=== PATIENT | female | born 1985 | race Caucasian/White ===

== ENCOUNTER 2016-07-22 21:31 | Emergency (ER) | payer OTHER ==
--- NOTE | 2016-07-22 23:43 | ED ---
- HPI Summary HPI Summary: Patient is 11 week arrives to ED with CC vaginal bleeding x 5 hours. Bleeding began initially last evening but was considered "spotting." She noted to some cramping today and expulsion of tissue and blood clots which have been constant since 5 hours prior to arrival in ED. Cramping is 5/10 and intermittent. She has not taken anything for the discomfort. Patient had not had OBGYN established yet d/t new onset of . First appt was next week. Denies fever or other illness. Denies urinary symptoms. On arrival, patient was soaking through 1 pad per hour and this continues. She states since onset, the cramping has improved and the bleeding has improved only slightly. - History of Current Complaint Chief Complaint: EDVaginalBleeding Stated Complaint: 11 WKS PREG-MISCARRIAGE Time Seen by Provider: 07/22/16 21:50 Hx Obtained From: Patient Chief Complaint: Concern for Embryonic Dem, Vaginal Bleeding Onset/Duration: Started Hours Ago Timing: Intermittent Severity: Moderate Current Severity: Moderate Pain Intensity: 5 Location of Pain: Flank, Suprapubic Character: Colicy, Cramping Associated Signs and Symptoms: Positive: Back Pain, Vaginal Bleeding or Discharge - Assessment Hx Now: Yes History of Ectopic : No Hx Pelvic Inflammatory Disease: No Vaginal Bleeding Amount: Copious Contraction Intensity: Moderate Contraction Pattern: Irregular Hx Hysterectomy: No History of STI/STD: No - Risk Factors Ectopic Risk Factor: Maternal Age ^ 30 Ovarian Torsion Risk Factor: Reproductive Age PMH/Surg Hx/FS Hx/Imm Hx Previously Healthy: Yes - Immunization History Date of Tetanus Vaccine: unk Date of Influenza Vaccine: unk Infectious Disease History: No Infectious Disease History: Denies: Traveled Outside the [place] in Last 30 Days - Social History Occupation: Employed Full-time Lives: With Family Alcohol Use: None Hx Substance Use: No Substance Use Type: Reports: None Hx Tobacco Use: No Smoking Status (MU): Never Smoked Tobacco Have You Chewed or Dipped Tobacco in the LAST YEAR: No Review of Systems Constitutional: Negative Eyes: Negative Cardiovascular: Negative Respiratory: Negative Positive: Abdominal Pain Positive: see HPI, other - vaginal bleeding Positive: Myalgia - cramping/back pain - contraction pain Neurological: Negative Psychological: Normal All Other Systems Reviewed And Are Negative: Yes Physical Exam - Physical Exam Triage Information Reviewed: Yes Vital Signs Reviewed: Yes Appearance: Positive: Well-Nourished, Pain Distress Skin: Positive: Warm, Skin Color Reflects Adequate Perfusion Eyes: Positive: Normal, EOMI Neck: Positive: Supple, No Lymphadenopathy Respiratory/Lung Sounds: Positive: Clear to Auscultation, Breath Sounds Present Cardiovascular: Positive: Normal, RRR Abdomen Description: Positive: Soft, Other: - tender to palpation in all 4 quadrants Bowel Sounds: Positive: Present Musculoskeletal: Positive: Normal, Strength/ROM Intact Neurological: Positive: Normal, Sensory/Motor Intact Psychiatric: Positive: Normal AVPU Assessment: Alert Diagnostics - Vital Signs Vital Signs Temp Pulse Resp BP Pulse Ox 07/22/16 21:36 98.8 F 105 18 114/72 98 - Laboratory Lab Statement: Any lab studies that have been ordered have been reviewed, and results considered in the medical decision making process. Course/Dx - Course Course Of Treatment: Dr. Fuchs consulted on patients arrival. Patient with tissue and blood passage x 5 hours. Patient states contractions and bleeding slightly improved since arrival to ED. Afebrile. Pain now 4/10 and contraction pain is intermittent. Patient is known 11 weeks by prior US and HCG. Transvaginal US completed. Patient to follow up with OB on Monday. Note given for 2 days from work. Patient agrees with plan and will rest for the weekend. Patient understands bleeding may occur for several days to week and return precautions given. On discharge, patient is no longer cramping and states 0/10 pain. Bleeding has significantly decreased and pelvic examination was deferred at this time per patients wishes. - Differential Diagnosis/HQI/PQRI: Incomplete , Missed , Spontaneous , Threatened , /Embryonic Demise - Diagnoses Provider Diagnoses: Incomplete Discharge - Discharge Plan Condition: Stable Disposition: HOME Patient Education Materials: Miscarriage (ED) Forms: *Work Release Referrals: No Primary Care Phys,NOPCP [Primary Care Provider] - Additional Instructions: Take Tylenol 650mg three times daily for any discomfort. Please follow up with OBGYN on Monday. If you develop fever or worsening pain or vaginal bleeding, please come back to ED.
[2016-07-23 00:28] VITALS: BP 103/57
--- NOTE | 2016-07-23 08:12 | RAD ---
Indication: 11 weeks 0 days gestation based on May 06, 2016. Possible miscarriage; past large amount of tissue at 8:00 PM tonight. Comparison: None. Technique: Transvaginal pelvic ultrasound. obstetrical ultrasound. Report: 9.1 x 5.5 x 5.8 cm retroverted uterus. Heterogeneous echogenicity 12 mm endometrium without intrinsic vascularity on Doppler. No intrauterine gestational sac visualized. 2.9 x 1.8 x 1.6 cm RIGHT ovary with documented vascular flow is remarkable for multiple small follicles only. 3.9 x 3.4 x 2.9 cm LEFT ovary with documented vascular flow is remarkable for a unilocular 2.1 x 2.4 x 2.1 cm cyst without complex features which may represent a follicular cyst or corpus luteum. No visualized extra ovarian adnexal region lesions. Physiologic small volume of free pelvic fluid. IMPRESSION: No IUP or suspicious adnexal lesion evident. In absence of a documented IUP ectopic is not entirely excluded. Close clinical, beta-HCG, and sonographic follow-up suggested. Follicular cyst or corpus luteum at the LEFT ovary measuring up to 2.4 cm.
== END 2016-07-23 00:27 | disposition home or self-care (01) ==
LOC: ED 21:31 → MERGE 21:31 → ED 07-23 00:27
DX: O03.4 Incomplete spontaneous abortion without complication (principal); M54.9 Dorsalgia, unspecified; N93.9 Abnormal uterine and vaginal bleeding, unspecified
CPT/HCPCS: 76817; 99283

== ENCOUNTER 2016-12-28 07:54 | Emergency (ER) | payer BC, OTHER ==
[2016-12-28] MEDS ORDERED: NS 0.9% 1000 ML* 1,000 ML IV ONE (08:05)
[2016-12-28] MEDS ORDERED: Ketorolac INJ* 30 MG/ML 1 ML VIAL IV PUSH ONE (08:19)
[2016-12-28 08:52] LABS: Hematocrit 40 % (35-47); Hemoglobin 13.5 g/dl (12.0-16.0); Mean Corpuscular HGB Conc 34 g/dl (31-36); Mean Corpuscular Hemoglobin 32 pg (27-31); Mean Corpuscular Volume 95 fL (80-97); Mean Platelet Volume 9 um3 (7.4-10.4); Red Blood Count 4.22 10^6/ul (4.0-5.4); Red Cell Distribution Width 12 % (10.5-15); White Blood Count 12.5 10^3/ul (3.5-10.8)
[2016-12-28 09:09] LABS: ALT 8 U/L (7-52); AST 14 U/L (13-39); Albumin 4.1 g/dL (3.2-5.2); Alkaline Phosphatase 57 U/L (34-104); Anion Gap 5 mmol/L (2-11); BUN/Creatinine Ratio 16.9 (8-20); Blood Urea Nitrogen 10 mg/dL (6-24); C Reactive Protein 14.76 mg/L (< 5.00); CO2 Carbon Dioxide 27 mmol/L (22-32); Calcium 9.3 mg/dL (8.6-10.3); Chloride 99 mmol/L (101-111); EGFR Non-African American 117.4 (>60); Globulin 2.7 g/dL (2-4); Glucose 107 mg/dL (70-100); Lipase < 10 U/L (11.0-82.0); Potassium 3.8 mmol/L (3.5-5.0); Sodium 131 mmol/L (133-145); Total Protein 6.8 g/dL (6.4-8.9)
[2016-12-28 09:56] LABS: Urine Bacteria 1+ (Absent); Urine Bilirubin Negative (Negative); Urine Glucose Negative (Negative); Urine Nitrite Negative (Negative)
--- NOTE | 2016-12-28 09:59 | RAD ---
CLINICAL HISTORY: Right flank pain COMPARISON: None relevant TECHNIQUE: Multiple contiguous axial CT scans were obtained of the abdomen and pelvis, without intravenous contrast enhancement. Coronal and sagittal multiplanar reformations are submitted for review. Oral contrast was not administered. FINDINGS: The study is limited by the lack of intravenous contrast. This limits evaluation of the solid organs and vasculature. LUNG BASES: The lung bases are clear. LIVER: The liver is normal in shape, size, contour, and attenuation. BILE DUCTS: There is no intrahepatic or extrahepatic biliary dilatation. GALLBLADDER: The gallbladder is normal, without pericholecystic inflammatory change. PANCREAS: The pancreas is normal, without mass or ductal dilatation. SPLEEN: Normal in size and appearance. UPPER GI TRACT: Evaluation of the gastrointestinal tract is limited by incomplete gastric distention. The upper GI tract is unremarkable. SMALL BOWEL AND MESENTERY: The small bowel is normal in contour, course, and caliber. There is no obstruction or dilatation. COLON: The colon is normal in contour, course, caliber. There is no pericolonic inflammatory change. ADRENALS: Normal bilaterally. KIDNEYS: There are punctate bilateral renal calyceal stones, measuring up to 0.2 cm. There is no appreciable hydronephrosis. BLADDER: The bladder is incompletely distended but is grossly normal. PELVIC ORGANS: There is a 2.2 cm left ovarian cyst. There is a small amount of free fluid within the pelvic cul-de-sac. This may BE physiologic within a reproductive age female. AORTA: The aorta is normal. IVC: Unremarkable LYMPH NODES: There is no lymphadenopathy by size criteria. ABDOMINAL WALL: There is no evidence for abdominal wall hernia. BONES AND SOFT TISSUES: The bones and soft tissues are unremarkable. OTHER: None IMPRESSION: 1. BILATERAL NONOBSTRUCTING RENAL CALYCEAL STONES. 2. LEFT OVARIAN CYST
--- NOTE | 2016-12-28 11:17 | RAD ---
HISTORY: Right lower abdominal pain COMPARISONS: CT dated December 28, 2016, TECHNIQUE: Multiple transverse and longitudinal ultrasound images were obtained of the pelvis using grayscale, color Doppler, and spectral Doppler imaging using the endovaginal transducer. FINDINGS: UTERUS: The uterus measures 8 x 4.1 x 5.1 cm. There is a myometrial fibroid in the lower uterine segment to the right of midline measuring 1.1 x 0.6 x 1 cm in size. ENDOMETRIUM: The endometrial stripe is smooth. The endometrium measures 1.3 cm in thickness. CUL-DE-SAC: There is no free fluid within the cul-de-sac. RIGHT OVARY: The right ovary measures 4 x 1.6 x 1.6 cm. Normal arterial and venous waveforms are identifiable within the ovary on spectral Doppler imaging. Several follicles are noted. LEFT OVARY: The left ovary measures 3.6 x 2.8 x 3.1 cm. Normal arterial and venous waveforms are identifiable within the ovary on spectral Doppler imaging. There is a 2.3 cm simple left ovary cyst. BLADDER: The bladder is not well visualized. OTHER: None IMPRESSION: 1. SMALL UTERINE FIBROID. 2. 2.3 CENTIMETER SIMPLE LEFT OVARIAN CYST. 3. NO SONOGRAPHIC FEATURES OF TORSION. PLEASE NOTE THAT PARTIAL OR INTERMITTENT TORSION MAY BE SONOGRAPHICALLY NORMAL.
[2016-12-28] MEDS ORDERED: Sulfamethox/Trimethoprim DS 800/160* TAB PO ONE (11:39)
[2016-12-28 12:14] VITALS: BP 97/71
--- NOTE | 2016-12-30 09:27 | PN ---
Progress Note - Progress Note Date of Service: 12/28/16 Note: diagnosed with pyelonephritis. sent home on bactrim. urine preliminary results grew >100,00 of e. coli. will wait for final culture results. no changes needed at this time.
--- NOTE | 2017-01-02 09:12 | PN ---
Progress Note - Progress Note Date of Service: 12/28/16 Note: Urine culture grew ESBL E. Coli Patient placed on Bactrim prior to discharge Bactrim is sensitive to organism. Nothing further at this time. Kati Sheets PA-C
== END 2016-12-28 12:44 | disposition home or self-care (01) ==
LOC: ED 07:54
DX: N83.202 Unspecified ovarian cyst, left side (principal); N12 Tubulo-interstitial nephritis, not specified as acute or chronic; R10.84 Generalized abdominal pain
CPT/HCPCS: 36415; 74176; 76830; 80053; 81003; 81015; 83605; 83690; 84702; 85025; 86140; 87077; 87086; 87186; 96374; 99282; A9270-GY; J1885

== ENCOUNTER 2018-09-01 16:00 | Emergency (ER) | payer BC ==
--- OUTSIDE RECORDS SUMMARY | 2018-09-01 16:06 | XMS REPORT | Continuity of Care Document ---
:1985 External Reference #:[id number] Author Name Freya Warner CNM Address [address] [place] [address] Care Team Providers Name Role Phone SANTY [place] Care Team Information Property Technician Unavailable Payers Date Identification Numbers Payment Provider Subscriber Policy Number: [id number] Antonio BC/[facility] Geno Herrera PayID: [id number] [address] [address] [place] [address] Advance Directives Description No Information Available Problems Date Description Provider Status Onset: 07/26/2016 Miscarriage Aylin Petit NP Resolved Resolved: 08/09/2016 Family History Date Family Member(s) Observation Comments Father A&W Mother A&W First Brother A&W half brother Second Brother A&W half brother First Sister A&W Paternal Grandfather due to Stroke () Paternal Grandfather due to Old Age () Paternal Grandmother due to Old Age () Maternal Grandfather due to Old Age () Maternal Grandmother due to Old Age () Social History Type Date Description Comments Sex Unknown Education Highest level completed, Bachelor's Degree Marital Status Single Lives With Son Lives With Pets 1 cat Occupation [employer] Cigarette Use Does Not Smoke Cigarettes ETOH Use Denies alcohol use Recreational Drug Use Does Not Use Drugs Tobacco Use Start: Unknown Patient has never smoked Currently Active Patient is currently sexually active Contraceptive Methods Past methods include condoms STD's No STD History Allergies, Adverse Reactions, Alerts Description No Known Drug Allergies Medications Medication Date Status Form Strength Qnty SIG Indications Ordering Provider B12 Folate Active Capsules 800-800mcg Unknown 0 B6 Natural Active Tablets 100mg Unknown 0 No Active Hx Aylin Medications 7 - Marisabel, SERVICE CONSULTANT 8 Medications Administered in Office Medication Date Status Form Strength Qnty SIG Indications Ordering Provider PT YVETTE Tbco Administered Injection Erianna Id as Non User 019 GAURAV Warner Immunizations Description No Information Available Vital Signs Date Vital Result Comment 08/08/2018 8:37am BP Systolic 98 mmHg BP Diastolic 60 mmHg Height 62 inches 5'2" Weight 132.00 lb BMI (Body Mass Index) 24.1 kg/m2 Last Menstrual Period 8562668 2 Parity 1 01/08/2018 11:13am BP Systolic 102 mmHg BP Diastolic 64 mmHg Height 62 inches 5'2" Weight 134.00 lb BMI (Body Mass Index) 24.5 kg/m2 Last Menstrual Period 6909574 2 Parity 1 08/09/2016 8:37am BP Systolic 110 mmHg BP Diastolic 64 mmHg Height 62 inches 5'2" Weight 142.00 lb BMI (Body Mass Index) 26.0 kg/m2 Last Menstrual Period 7432978 2 Parity 1 07/26/2016 9:13am BP Systolic 108 mmHg BP Diastolic 60 mmHg Height 62 inches 5'2" Weight 141.00 lb BMI (Body Mass Index) 25.8 kg/m2 Last Menstrual Period 9707341 2 Parity 1 Results Test Date Facility Test Result H/L Range Note CBC With No 01/18/2018 [facility] White Blood 5.5 10^3/uL N 3.5-10.8 [place] [address] Count [phone] Red Blood Count 4.06 10^6/uL N 4.00-5.40 Hemoglobin 12.8 g/dL N 12.0-16.0 Hematocrit 38 % N 35-47 Mean Corpuscular Volume 93 fL N 80-97 Mean Corpuscular Hemoglobin 32 pg High 27-31 Mean Corpuscular HGB Conc 34 g/dL N 31-36 Red Cell Distribution Width 13 % N 10.5-15 Platelet Count 234 10^3/uL N 150-450 Mean Platelet Volume 9.2 um3 N 7.4-10.4 Laboratory test finding 01/18/2018 [facility] Estradiol 49 pg/ mL 1 [place] [address] [phone] FSH 7.8 mIU/mL 2 Lutenizing Hormone 11.2 mcIU/mL 3 Prolactin 12.9 ng/mL N 1.0-25.0 4 TSH 2.96 mcIU/mL N 0.34-5.60 5 T4 Free 1.12 ng/dL N 0.61-1.12 6 Laboratory test 01/08/2018 [facility] Cytology SEE RESULT BELOW 7 [place] [address] [phone] Laboratory test 08/09/2016 [facility] Cytology SEE RESULT BELOW 8 [place] [address] [phone] Human Papilloma Virus Rna POSITIVE Abnormal Negative 9 Laboratory test 08/09/2016 [facility] HCG 18.35 mIU/ mL N 10 [place] [address] [phone] Laboratory test 07/26/2016 [facility] HCG 906.16 mIU/ mL N 11 [place] [address] [phone] Laboratory test 07/22/2016 [facility] HCG 49587.00 N 12 [place] [address] mIU/mL [phone] Type And Screen 07/22/2016 [facility] Patient [place] [address] Type [phone] Antibody Screen NEGATIVE N 1 Estradiols <40 pg/mL are sent to a reference lab for low range testing. Postmenopausal Females < 20 Ovulating females: by day in cycle relative to LH Peak Follicular phase - 12 10-50 - 4 60-200 Mid-cycle - 1 120-375 Luteal phase + 2 50-155 + 6 60-260 + 12 15-115 2 Normally menstruating females - Follicular phase 3 - 9 - Mid-cycle peak 4 - 23 - Luteal phase 1 - 6 Postmenopausal females 16 - 114 3 Normally menstruating females - Follicular Phase 1 - 18 - Mid-Cycle Peak 24 - 105 - Luteal Phase 0.6 - 20 Postmenopausal females 15 - 62 4 [id number] 5 [id number] 6 [id number] 7 SEE RESULT BELOW Name: GENO FLETCHER : [address]: Freya Warner [facility] Acct: [id number] Unit: [id number] AGE: 32 Location: [facility] Re01/08/18 SEX: F Status: REG REF SPEC: [id number] KAUR: 01/08/18-[address]: Freya Warner [facility] REQ: [id number] RECD: 01/08/18 STATUS: SOUT _ ORDERED: TP IMAGE ANALYS, HPV/Thin Prep COMMENTS: [id number] Negative for Intraepithelial lesion or Malignancy Date Time Test Result Flag (u) Normal Range 01/08/18 1412 @ HPV RNA Negative Negative @ @ The high-risk HPV types detected by the assay include: 16, @ 18, 31, 33, 35, 39, 45, 51, 52, 56, 58, 59, 66, and 68. A. Ectocervical/Endocervical Specimen Adequacy: Satisfactory of evaluation Transformation zone component identified Patient Information: HPV: High risk HPV RNA testing regardless of pap results. Actual Specimen Date: 01/08/18 Last Menstrual Date: 12/18/17 Date of Last Specimen: 08/09/16 ?: N Post Menopausal?: N Hysterectomy?: N Previous Abnormal Pap Smears?:N Signed by and Reported on: NISSA Winkler (ASCP) 1416 This Pap test was evaluated with the assistance of the AniwaysPrep Test Imaging System. Due to cytologic findings at the painter aircraft microscope, comprehensive manual rescreening by a Instructor Programmable Controllers may be required. The Pap Smear is a screening test designed to aid in the detection of premalignant and malignant conditions of the uterine cervix. It is not a diagnostic procedure and should not be used as the sole means of detecting cervical cancer. Both false- positive and false- negative reports do occur. Depending on your risk status, a Pap smear should be obtained and evaluated every 1-3 years. END OF REPORT DEPARTMENT OF PATHOLOGY, [address] [place] [address] Toño Yost M.D. Director [facility] # [id number] 8 SEE RESULT BELOW Name: GENO FLETCHER : [address]: Aylin Petit NP Acct: [id number] Unit: [id number] AGE: 31 Location: [facility] Re08/09/16 SEX: F Status: REG REF SPEC: [id number] KAUR: 08/09/[address]: Aylin Petit NP REQ: [id number] RECD: 08/09/16-1305 STATUS: SOUT _ ORDERED: IMAGE ANALYSIS, HPV/Thin Prep COMMENTS: [id number] FINAL DIAGNOSIS Negative for Intraepithelial lesion or Malignancy A. Ectocervical/Endocervical Specimen Adequacy: Satisfactory of evaluation Transformation zone component identified Patient Information: HPV: High risk HPV RNA testing regardless of pap results. Actual Specimen Date: 08/09/16 Last Menstrual Date: 05/06/16 Spec Date if unknown: unknown ?: N Post Menopausal?: N Hysterectomy?: N Previous Abnormal Pap Smears?:N Date Time Test Result Flag (u) Normal Range 08/09/16 0923 HPV RNA POSITIVE H Negative The high-risk HPV types detected by the assay include: 16, 18, 31, 33, 35, 39, 45, 51, 52, 56, 58, 59, 66, and 68. Signed (signature on file) Radu MercerNISSA(ASCP) 08/11 1355 This Pap test was evaluated with the assistance of the AniwaysPrep Test Imaging System. Due to cytologic findings at the painter aircraft microscope, comprehensive manual rescreening by a Instructor Programmable Controllers may be required. The Pap Smear is a screening test designed to aid in the detection of premalignant and malignant conditions of the uterine cervix. It is not a diagnostic procedure and should not be used as the sole means of detecting cervical cancer. Both false- positive and false- negative reports do occur. Depending on your risk status, a Pap smear should be obtained and evaluated every 1-3 years. END OF REPORT * ML=Testing performed at Main Lab DEPARTMENT OF PATHOLOGY, [address] [place] [address] Toño Yost M.D. Director [facility] # [id number] RUN DATE: 08/11/16 [facility] LAB LIVE PAGE 1 Patient: GENO FLETCHER [id number] (Continued) 9 The high-risk HPV types detected by the assay include: 16, 18, 31, 33, 35, 39, 45, 51, 52, 56, 58, 59, 66, and 68. 10 <5.0 Negative 5.0 - 25.0 Indeterminate (Repeat testing recommended after 72 hours) >25.0 Positive Perimenopausal women can display HCG levels of up to 20 mIU/mL 11 <5.0 Negative 5.0 - 25.0 Indeterminate (Repeat testing recommended after 72 hours) >25.0 Positive Perimenopausal women can display HCG levels of up to 20 mIU/mL 12 <5.0 Negative 5.0 - 25.0 Indeterminate (Repeat testing recommended after 72 hours) >25.0 Positive Perimenopausal women can display HCG levels of up to 20 mIU/mL Procedures Date Code Description Status 07/26/2016 62186 Echography Transvaginal Completed Encounters Type Date Location Provider Dx Diagnosis Office Visit 08/08/2018 [facility] Freya Warner, N97.9 Female infertility, 9:00a CNM unspecified Office Visit 01/08/2018 [facility] Freya Warner Z01.419 Encntr for aerial lineman exam 11:20a CNM (general) (routine) w/o abn findings Office Visit 08/09/2016 [facility] Aylin Petit NP Z01.419 Encntr for aerial lineman exam 9:00a (general) (routine) w/o abn findings Office Visit 07/26/2016 [facility] Aylin Petit NP O02.1 Missed 9:30a Plan of Treatment Future Appointment(s):09/07/2018 9:00 am - Charity Bull CNM at [facility] 8:30 am - Ultrasounds at [facility]08/08/2018 - [place]97.9 Female infertility, unspecifiedComments:Return for sono with review before next ovulation to check lining/follicles. We will plan progesterone testing approx 1 week after ovulation. Can consider progesterone in upcoming cycles if indicated. Patient to call to schedule HSG and confirm timing for sono with next period. As discussed, considering scheduling consult with Kenneth/ [facility] because may take some time to get on their schedule and can cancel if not needed.
--- NOTE | 2018-09-01 17:39 | UC ---
Complaint Female HPI - HPI Summary HPI Summary: 2 DAYS OF WORSENING LEFT FLANK PAIN AND LEFT LOWER ABDOMINAL PAIN. NO DYSURIA, FREQUENCY OR URGENCY BUT DOES C/O SENSATION OF INCOMPLETE VOIDING. IS CURRENTLY ON MENSES. HAS A KNOWN H/O OF SMALL LEFT SIDED KIDNEY STONES. HAS ALSO HAD MILD INTERMITTENT NAUSEA AND OVERALL MALAISE. - History Of Current Complaint Chief Complaint: UCGU Stated Complaint: KIDENY/BACK PAIN Time Seen by Provider: 09/01/18 16:07 Hx Obtained From: Patient Hx Last Menstrual Period: on it Onset/Duration: Gradual Onset, Lasting Days, Still Present Timing: Constant Severity Initially: Moderate Severity Currently: Moderate Pain Intensity: 8 Pain Scale Used: 0-10 Numeric Character: Sharp Aggravating Factor(s): Nothing Associated Signs And Symptoms: Positive: Back Pain, Nausea. Negative: Fever - Allergies/Home Medications Allergies/Adverse Reactions: Allergies Allergy/AdvReac Type Severity Reaction Status Date / Time fish derived Allergy Hives Verified 09/01/18 16:31 PMH/Surg Hx/FS Hx/Imm Hx GI/ History: Kidney Stones - Surgical History Surgical History: Yes Surgery Procedure, Year, and Place: 2010 - Family History Known Family History: Positive: Non-Contributory - Social History Alcohol Use: None Substance Use Type: None Smoking Status (MU): Never Smoked Tobacco Review of Systems All Other Systems Reviewed And Are Negative: Yes Constitutional: Positive: Negative Respiratory: Positive: Negative Cardiovascular: Positive: Negative Gastrointestinal: Positive: Nausea Genitourinary: Positive: Other - SENSATION OF INCOMPLETE VOIDING. Negative: Dysuria, Hematuria, Frequency, Urgency Physical Exam Triage Information Reviewed: Yes Appearance: Well-Appearing, No Pain Distress, Well-Nourished Vital Signs: Initial Vital Signs Temp 99.1 F 09/01/18 16:09 Pulse 93 09/01/18 16:09 Resp 16 09/01/18 16:09 BP 120/80 09/01/18 16:09 Pulse Ox 100 09/01/18 16:09 Laboratory Tests 09/01/18 09/01/18 16:24 16:27 POC Urine Color Yellow POC Urine Clarity Turbid POC Urine pH 7.0 POC Ur Specif [place] 1.020 POC Urine Protein 3+ A POC Ur Glucose (UA) Negative POC Urine Ketones Negative POC Urine Blood 3+ A POC Urine Nitrite Negative POC Urine Bilirubin Negative POC Urine Urobilinogen 0.2 POC U Leukocyte Esteras 2+ A POC Ur Test Negative Eyes: Positive: Conjunctiva Clear ENT: Positive: Hearing grossly normal Neck: Positive: Supple Respiratory: Positive: No respiratory distress, No accessory muscle use Cardiovascular: Positive: Pulses Normal Abdomen Description: Positive: Soft, CVA Tenderness (L), Other: - TENDER LUQ. NO REBOUND OR RIGIDITY. Negative: CVA Tenderness (R), Distended, Guarding Musculoskeletal: Positive: No Edema Neurological: Positive: Alert Psychological: Positive: Age Appropriate Behavior Skin: Negative: Rashes Diagnostics - Radiology CT ABD/PELVIS W/O CONTRAST Radiology Interpretation Completed By: Radiologist Summary of Radiographic Findings: No evidence of obstructive uropathy is noted. No hernias are identified. There. are tiny calculi in both kidneys which are nonobstructive. Gallbladder is partially. contracted. Complaint Female Dx - Differential Dx/Diagnosis Provider Diagnosis: Pyelonephritis Discharge - Sign-Out/Discharge Documenting (check all that apply): Patient Departure All imaging exams completed and their final reports reviewed: Yes - Discharge Plan Condition: Stable Disposition: HOME Prescriptions: Sulfamethox/Trimethoprim DS* [Bactrim DS 800/160 TAB*] 1 tab PO BID #12 tab Patient Education Materials: Kidney Infection (ED) Referrals: Rowdy CROWLEY,Danny Maldonado [Medical Doctor] - 1 Week Additional Instructions: CLINICALLY I AM CONCERNED YOU HAVE AN EARLY PYELONEPHRITIS. YOUR CT SCAN SHOWED BILATERAL NONOBSTRUCTING KIDNEY STONES SIMILAR TO YOUR LAST SCAN SO THESE ARE UNLIKELY TO BE CAUSING YOUR DISCOMFORT. YOU HAVE A HISTORY OF ESBL E. COLI IN YOUR URINE CULTURE FROM 12/2016. WE WILL SEND YOUR CURRENT URINE FOR CULTURE TO ENSURE THAT BACTRIM WILL AGAIN COVER WHAT YOU ARE GROWING. I WOULD RECOMMEND YOU FOLLOW-UP WITH DR. LINDA WITH INFECTIOUS DISEASES TO DISCUSS YOUR HISTORY OR ESBL E.COLI. - Billing Disposition and Condition Condition: STABLE Disposition: Home
[2018-09-01] MEDS ORDERED: Sulfamethox/Trimethoprim DS 800/160* TAB PO ONE (18:19)
[2018-09-01 18:30] VITALS: BP 118/72
== END 2018-09-01 18:35 | disposition home or self-care (01) ==
LOC: UCEAST 16:00
DX: N10 Acute pyelonephritis (principal); B96.20 Unspecified Escherichia coli [E. coli] as the cause of diseases classified elsewhere; N20.0 Calculus of kidney; Z87.442 Personal history of urinary calculi; K82.0 Obstruction of gallbladder; R11.0 Nausea; Z91.013 Allergy to seafood
CPT/HCPCS: 74176; 81003; 84702; 87077; 87086; 87186; 99212; A9270-GY; G0463